=== PATIENT | female | born 1995 | race Caucasian/White ===

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

== ENCOUNTER 2018-07-02 19:43 | Emergency (ER) | payer OTHER ==
[~2018-07-02] VITALS: Wt 95.0 kg
[~2018-07-02 19:43] MED LIST changes: +ALBU2.5V3 NEB; -ALBU8.5H3 INH; +ALBU8.5H8 INH; +CODE5LIQ2 PO; +SODI126M NASAL; -UDROBAC PO
[2018-07-02] MEDS ORDERED: SOD CHLORIDE 0.9% 1,000 ML IV STA (19:58)
[2018-07-02] MEDS ORDERED: MAGNESIUM SULFATE 2 GM/50 ML 50 ML IVPB STA (19:58)
[2018-07-02] MEDS ORDERED: LEVALBUTEROL (NEB) 1.25 MG/0.5 ML AMP INH STA (19:58)
[2018-07-02] MEDS ORDERED: IPRATROPIUM (NEB) 0.5 MG/2.5 ML AMP INH STA (19:58)
[2018-07-02] MEDS ORDERED: METHYLPREDNISOLONE 125 MG INJ IV STA (19:58)
--- NOTE | 2018-07-02 19:58 | ERD ---
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 She does not smoke or drink Past medical history: Asthma Past surgical history: None ROS All systems reviewed and are negative except as per history of present illness. Medications Home Meds Active Scripts Albuterol Sulfate* (Proair HFA*) 8.5 Gm Hfa.aer.ad, 2 PUFF INH Q4H PRN for WHEEZING AND SOB, #1 INHALER Prov:YAYO MIKE MD 07/02/18 Salmeterol Xinaf-Fluticasone* (Advair HFA*) 115/21 Aerosol Inhaler, 2 INH IH BID, #1 INHALER Prov:YAYO MIKE MD 07/02/18 Prednisone* (Prednisone*) 20 Mg Tab, 60 MG PO DAILY for 5 Days, TAB Prov:YAYO MIKE MD 07/02/18 Reported Medications Mometasone-Formoterol (Dulera) 100-5 Mcg - 13 Gm Hfa.aer.ad, 2 PUFFS INHALATION BID, #1 INHALER 07/02/18 Montelukast Sodium* (Montelukast Sodium*) 10 Mg Tablet, 10 MG PO QHS, #30 TAB 07/02/18 Albuterol Sulfate (Proair Respiclick) 90 Mcg Aer.pow.ba, 1 PUFF INHALATION Q4, #1 BOTTLE 07/02/18 Albuterol Sulfate* (Ventolin HFA*) 18 Gm Hfa.aer.ad, 2 PUFF INHALATION Q4H, #1 INHALER 07/02/18 Discontinued Scripts Sodium Chloride (Saline Nasal Mist) 126 Ml Mist, 2 SPRAY NASAL Q2H PRN for NASAL CONGESTION, #1 BOTTLE Prov:LUDWIG DAHL. SENIOR SOFTWARE ENGINEERING MANAGER 03/20/16 Albuterol Sulfate* (Ventolin HFA*) 18 Gm Hfa.aer.ad, 2 PUFF INHALATION Q4H, #1 INHALER Prov:LUDWIG DAHL. SENIOR SOFTWARE ENGINEERING MANAGER 03/20/16 Albuterol Sulfate* (Albuterol Sulfate* Neb) 0.083%-3 Ml Neb, 2.5 MG NEB Q4 PRN for SHORTNESS OF BREATH, #30 EA Prov:LUDWIG DAHL SENIOR SOFTWARE ENGINEERING MANAGER 03/20/16 Albuterol Sulfate* (Proair HFA*) 8.5 Gm Hfa.aer.ad, 2 PUFF INH Q4, #1 INHALER Prov:NIDIA NEWBERRY PA-C 02/02/16 Prednisone* (Prednisone*) 20 Mg Tab, 40 MG PO DAILY for 4 Days, TAB Prov:NIDIA NEWBERRYC 02/02/16 Prednisone* (Prednisone*) 20 Mg Tab, 40 MG PO DAILY for 4 Days, TAB Prov:NICKOLAS YEE, SENIOR SOFTWARE ENGINEERING MANAGER 12/31/15 Levofloxacin* (Levaquin*) 750 Mg Tablet, 750 MG PO DAILY for 5 Days, #5 TAB Prov:NICKOLAS YEE, SENIOR SOFTWARE ENGINEERING MANAGER 12/31/15 Albuterol Sulfate* (Proair HFA*) 8.5 Gm Hfa.aer.ad, 2 PUFF INH Q4H PRN for WHEEZING AND SOB, #1 INHALER Prov:NICKOLAS YEE, SENIOR SOFTWARE ENGINEERING MANAGER 12/31/15 Prednisone* (Prednisone*) 20 Mg Tab, 40 MG PO DAILY, #8 TAB 0 Refills Prov:MICHEAL JUDGE PA-C 06/30/15 Albuterol Sulfate* (Ventolin HFA*) 18 Gm Hfa.aer.ad, 2 PUFF INHALATION Q6H, #1 INHALER 0 Refills Prov:MICHEAL JUDGE PA-C 06/30/15 Albuterol Sulfate* (Proair HFA*) 8.5 Gm Hfa.aer.ad, 2 PUFF INH Q6 for 28 Days, INH Prov:KILEY SHERMAN I. SENIOR SOFTWARE ENGINEERING MANAGER 02/01/15 Guaifenesin-Codeine Phosphate* (Robitussin* AC) 5 Ml Syrup, 5 ML PO Q4H PRN for COUGH, #8 OZ Prov:LOU SHIRLEY DO 10/24/14 Prednisone* (Prednisone*) 20 Mg Tab, 20 MG PO DAILY, #10 TAB 40 mg daily x 3 days,t hen 30 mg daily x 2 days Prov:LOU SHIRLEY DO 10/24/14 Albuterol Sulfate* (Proair HFA*) 8.5 Gm Hfa.aer.ad, 2 PUFF INH Q4, #1 INH Prov:LOU SHIRLEY DO 10/24/14 Allergies Allergies: Coded Allergies: No Known Allergy (Unverified , 07/02/18) PMhx/Soc History of Surgery: No Anesthesia Reaction: No Hx Neurological Disorder: No Hx Respiratory Disorders: Yes (ASTHMA) Hx Cardiac Disorders: No Hx Psychiatric Problems: No Hx Miscellaneous Medical Probl: No Hx Alcohol Use: No Hx Substance Use: No Hx Tobacco Use: No Smoking Status: Never smoker Physical Exam Vitals Vital Signs Date Temp Pulse Resp B/P (MAP) Pulse Ox O2 O2 Flow FiO2 Time Delivery Rate 07/02/18 Nasal 4 22:05 Cannula 07/02/18 95 4.0 20:33 07/02/18 97 28 4.0 95 20:32 07/02/18 98.1 104 19 111/74 100 Room Air 19:50 (86) 07/02/18 98.1 71 19 126/65 100 19:48 (85) Physical Exam Const: No acute distress. Head: Atraumatic. Eyes: Normal Conjunctiva. ENT: Normal External Ears, Nose and Mouth. Neck: Full range of motion. No meningismus. Resp: Tachypneic, bilateral expiratory wheezes Cardio: Regular rate and rhythm. Abd: Soft, non distended, normal bowel sounds, non tender. Skin: No petechiae or rashes. Back: No midline or flank tenderness. Ext: No cyanosis, or edema. Neur: Awake and alert. No focal deficit Psych: Normal Mood and Affect. Results 24 hrs Current Medications Medications Dose Sig/Renetta Start Time Status Last (Trade) Ordered Route PRN Stop Time Admin Dose Reason Admin Sodium 1,000 ml @ Q1H STAT 07/02/18 DC 07/02/18 Chloride 1,000 mls/hr IV 19:58 20:25 07/02/18 20:57 5 mg ONCE STAT 07/02/18 DC 07/02/18 Levalbuterol INH 19:58 20:16 (Xopenex 07/02/18 20:00 Neb) Ipratropium 2 mg ONCE STAT 07/02/18 DC 07/02/18 Ewen INH 19:58 20:16 (Atrovent 07/02/18 20:00 0.02% (Neb)) 125 mg ONCE STAT 07/02/18 DC 07/02/18 Methylprednis IV 19:58 20:21 olone Sodium 07/02/18 20:00 Succinate (Solu-Medrol) Magnesium 50 ml @ 25 ONCE STAT 07/02/18 DC 07/02/18 Sulfate mls/hr IVPB 19:58 20:22 07/02/18 21:57 Sodium 1,000 ml @ Q1H ONCE 07/02/18 07/02/18 Chloride 1,000 mls/hr IV 21:30 22:17 07/02/18 22:29 Procedures/[place] [id number] Radiology Main Line: [phone] DIAGNOSTIC IMAGING REPORT Patient: ADALGISA GUILLERMO : 1995 Age: 22 Sex: F MR #: [id number] DOS: 07/02/181957 Ordering MD: YAYO MIKE MD Location: E/R Room/Bed: PROCEDURE: XR Chest. CLINICAL INDICATION: Asthma exacerbation TECHNIQUE: Single frontal view of the chest was obtained. COMPARISON: 03/20/2016 FINDINGS: The cardiomediastinal silhouette is normal size. Pulmonary vasculature is within normal limits. The lungs are clear. No signs of pleural fluid or pneumothorax are seen. The osseous structures and soft tissues are unremarkable. IMPRESSION: No evidence for active cardiopulmonary disease. RPTAT: HBST .Red Lindo MD, MD Date Time Electronically viewed and signed by .Red Lindo MD, on 07/02/2018 20:56 .T/ CC: YAYO MIKE MD [phone] EKG: Read by emergency physician Rate/Rhythm: Normal Sinus Rhythm 100 beats/min QRS, ST, T-waves: No ST elevation, no T inversion Impression: Normal EKG MEDICAL MAKING DECISION: The patient is a 32-year-old female, presenting with acute asthma exacerbation, was treated with 2 L normal saline over many hours, Xopenex 5 mg and Atrovent 2 mg continuous nebulizer over 1 hour, Solu-Medrol 125 mg IV, magnesium 2 g IV for acute asthma with good response. The differential diagnoses considered include but are not limited to influenza, pneumonia, bronchitis, reactive airway disease Departure Diagnosis: Primary Impression: Acute asthma Condition: Good Comments He was discharged with prednisone, Advair, albuterol and I discussed the findings with the patient. I advised the patient to follow-up with the primary physician in about 1-2 days, sooner if needed and return if any concern. Disclaimer: Inadvertent spelling and grammatical errors are likely due to E HR/dictation software use and do not reflect on the overall quality of patient care. Also, please note that the electronic time recorded on this note does not necessarily reflect the actual time of the patient encounter. YAYO MIKE MD July 02, 2018 19:57
[2018-07-02] MEDS ORDERED: ALBU18HF INHALATION (19:59)
[2018-07-02] MEDS ORDERED: ALBU90AE INHALATION (20:00)
[2018-07-02] MEDS ORDERED: MONT10TA24 PO (20:07)
[2018-07-02] MEDS ORDERED: MOME13HF2 INHALATION (20:08)
[2018-07-02] MEDS ORDERED: PRED20TA PO (21:28)
[2018-07-02] MEDS ORDERED: ALBU8.5H8 INH (21:29)
[2018-07-02] MEDS ORDERED: FLUT12HF2 IH (21:29)
[2018-07-02] MEDS ORDERED: SOD CHLORIDE 0.9% 1,000 ML IV ONE (21:30)
[2018-07-02] MEDS ORDERED: ALBUTEROL 0.083% (NEB) 2.5 MG/3 ML AMP NEB STA (23:12)
[2018-07-02] MEDS ORDERED: IPRATROPIUM (NEB) 0.5 MG/2.5 ML AMP NEB STA (23:12)
[2018-07-02 23:56] VITALS: BP 118/86; PULSE 88; RESP 16
== END 2018-07-02 23:57 | disposition home or self-care (01) ==
LOC: E/R 19:43
DX: J45.901 Unspecified asthma with (acute) exacerbation (principal)
CPT/HCPCS: 71045; 93005; 94644; 94664; 96365; 96375; J2930; J3475; J7030; Z7502; Z7610; 94640